=== PATIENT | male | born 1970 | race Caucasian/White ===

== ENCOUNTER 2020-11-10 21:33 | Observation (INO) | payer OTHER ==
[~2020-11-10 21:33] MED LIST: Iopamidol-370 76% 500 ML 1 ML ONE
[2020-11-10] MEDS ORDERED: Boostrix 0.5 ML (Tdap) VIAL ONE (22:08)
[2020-11-10] MEDS ORDERED: Ketorolac Tromethamine 30 MG/ML VIAL ONE (22:08)
[2020-11-10] MEDS ORDERED: traMADol HCl 50 MG TAB PO PRN (22:32)
[2020-11-10] MEDS ORDERED: Cyclobenzaprine 10 MG TAB PO PRN (22:32)
[2020-11-10] MEDS ORDERED: Dextrose 5% in Water 1,000 ML IV PRN (22:33)
[2020-11-10] MEDS ORDERED: Ondansetron ODT 4 MG TAB PO PRN (22:33)
[2020-11-10] MEDS ORDERED: Dextrose 50% Abboject 50 ML SYRINGE SLOW IVP PRN (22:33)
[2020-11-10] MEDS ORDERED: Gabapentin 300 MG CAP PO STA (22:38)
[2020-11-10] MEDS ORDERED: Morphine 2 MG/ML VIAL SLOW IVP STA (22:39)
[2020-11-10 22:55] LABS: #Basophils 0.1 thou/uL (0.0-0.2); #Lymphocytes 0.7 thou/uL (1.20-3.40); #Monocytes 0.8 thou/uL (0.11-0.59); #Neutrophils 11.3 thou/uL (1.40-6.50); %Basophils 0.4 % (0.0-1.0); %Eosinophils 0.2 % (0.0-10.0); %Lymphocytes 5.5 % (21.0-51.0); %Monocytes 6.4 % (0.0-10.0); %Neutrophils 87.5 % (42.0-75.0); Mean Corpuscular HGB CONC 33.8 g/dL (32.0-36.0); Mean Corpuscular Hemoglobin 32.3 pg (27.0-31.0); Mean Corpuscular Volume 95.6 fL (78.0-98.0); Mean Platelet Volume 9.4 fL (7.4-10.4); Platelet Count 196 thou/uL (130-400); RBC Distribution Width 11.5 % (11.5-14.5); Red Blood Cell (RBC) Count 4.33 mill/uL (4.70-6.10); White Blood Cell (WBC) Count 12.9 thou/uL (4.8-10.8)
[2020-11-10] MEDS ORDERED: Cyclobenzaprine 10 MG TAB PO SCH (23:00)
[2020-11-10] MEDS ORDERED: Gabapentin 300 MG CAP PO SCH (23:00)
[2020-11-10 23:18] LABS: ALT (SGPT) 14 U/L (8-55); AST (SGOT) 20 U/L (5-34); Albumin 3.7 g/dL (3.5-5.0); Alkaline Phosphatase 53 U/L (40-110); Anion Gap 15 mmol/L (10-20); BUN (Urea Nitrogen) 12 mg/dL (8.4-25.7); Bilirubin, Total 0.7 mg/dL (0.2-1.2); Calc. Creatinine Clearance 0 mL/min (70-130); Calcium 8.6 mg/dL (7.8-10.44); Carbon Dioxide 23 mmol/L (22-29); Chloride 105 mmol/L (98-107); Glucose 87 mg/dL (70-105); Potassium 3.9 mmol/L (3.5-5.1); Protein, Total 6.7 g/dL (6.0-8.3); Sodium 139 mmol/L (136-145)
[2020-11-10] MEDS ORDERED: traMADol HCl 50 MG TAB ONE (23:25)
[2020-11-10 23:36] LABS: Lactic Acid 1.2 mmol/L (0.5-2.2)
[2020-11-10] MEDS ORDERED: traMADol HCl 50 MG TAB PO SCH (23:59)
[2020-11-11 00:44] VITALS: BMI 27.6
[2020-11-11] MEDS: Acetaminophen 325 MG TAB PO SCH ×4 (01:47→17:10)
[2020-11-11 05:12] LABS: SARS-CoV-2 PCR by NAA Not Detected (NotDetected)
[2020-11-11] MEDS ORDERED: Cyclobenzaprine 10 MG TAB PO PRN (06:00)
[2020-11-11] MEDS: Gabapentin 300 MG CAP PO SCH ×2 (06:08→14:51)
[2020-11-11] MEDS: traMADol HCl 50 MG TAB PO SCH ×3 (06:09→17:13)
[2020-11-11] MEDS: Ibuprofen 600 MG TAB PO SCH ×2 (06:10→14:51)
[2020-11-11] MEDS ORDERED: Gabapentin 300 MG CAP PO SCH (09:00)
[2020-11-11] MEDS ORDERED: FLU VACC QS2020-21(6MOS UP)/PF 60 MCG/0.5 ML SYRINGE IM ONE (09:00)
[2020-11-11] MEDS ORDERED: Famotidine 20 MG TAB PO SCH (09:00)
[2020-11-11 20:06] VITALS: BP 134/85; TEMP 98
== END 2020-11-11 19:55 | disposition home or self-care (01) ==
LOC: ERS 21:33 → SJJU 22:33
PROVIDERS: ADMIT Surgery; ATTEND Surgery
DX: S27.321A Contusion of lung, unilateral, initial encounter (principal); S22.42XA Multiple fractures of ribs, left side, initial encounter for closed fracture; S43.102A Unspecified dislocation of left acromioclavicular joint, initial encounter; G89.11 Acute pain due to trauma; Z20.822 Contact with and (suspected) exposure to COVID-19; V18.0XXA Pedal cycle driver injured in noncollision transport accident in nontraffic accident, initial encounter; Y93.55 Activity, bike riding
CPT/HCPCS: 36415; 71045; 74177; 80053; 83605; 84484; 85025; 87635; 90471; 90715; 93005; 96374; G0378; J1885; J2270; Q9967; U0003; U0005